=== PATIENT | female | born 1990 | race Two or more races ===

== ENCOUNTER 2022-04-25 14:59 | Outpatient (CLI) | payer OTHER | END 2022-04-25 17:00 | disposition home or self-care (01) | LOC: PRENATAL 14:59 | PROVIDERS: ATTEND Obstetrics & Gynecology Maternal & Fetal Medicine | DX: O35.9XX0 Maternal care for (suspected) fetal abnormality and damage, unspecified, not applicable or unspecified (principal); O35.3XX0 Maternal care for (suspected) damage to fetus from viral disease in mother, not applicable or unspecified; Z3A.21 21 weeks gestation of pregnancy ==

== ENCOUNTER 2022-04-28 08:35 | Inpatient (IN) | payer OTHER ==
[~2022-04-28] VITALS: Ht 177.8 cm; Wt 103.4 kg
[2022-04-28] MEDS ORDERED: PRENATABS RX T1 EACH PO (09:08)
[2022-04-29] MEDS ORDERED: RHOGAM ULTR1500 UNIT IM (07:32)
== END 2022-04-30 10:41 | disposition home or self-care (01) | DRG 807 ==
LOC: LDR 08:35 → O/R 08:35 → OB/GYN 04-29 18:28
PROVIDERS: ADMIT Specialist; ATTEND Specialist
PROC: 3E0DXGC Introduction of Other Therapeutic Substance into Mouth and Pharynx, External Approach (ICD-10-PCS; 2022-04-28)
PROC: 3E0P7VZ Introduction of Hormone into Female Reproductive, Via Natural or Artificial Opening (ICD-10-PCS; 2022-04-28)
PROC: 3E033VJ Introduction of Other Hormone into Peripheral Vein, Percutaneous Approach (ICD-10-PCS; 2022-04-28)
PROC: 4A1HXCZ Monitoring of Products of Conception, Cardiac Rate, External Approach (ICD-10-PCS; 2022-04-28)
PROC: 10D17Z9 Manual Extraction of Products of Conception, Retained, Via Natural or Artificial Opening (ICD-10-PCS; 2022-04-29)
PROC: 10E0XZZ Delivery of Products of Conception, External Approach (ICD-10-PCS; principal; 2022-04-29 15:00)
DX: O36.4XX0 Maternal care for intrauterine death, not applicable or unspecified (principal); Z37.1 Single stillbirth; O03.4 Incomplete spontaneous abortion without complication; Z3A.21 21 weeks gestation of pregnancy; Z20.822 Contact with and (suspected) exposure to COVID-19

== ENCOUNTER → 2023-09-23 08:03 | Outpatient (CLI) | payer OTHER ==
[~2023-09-23 08:03] MED LIST: PRENATABS RX T1 EACH PO; RHOGAM ULTR1500 UNIT IM
== END | disposition home or self-care (01) ==
LOC: PRENATAL 08:03
PROVIDERS: ATTEND Obstetrics & Gynecology Maternal & Fetal Medicine
DX: O35.9XX0 Maternal care for (suspected) fetal abnormality and damage, unspecified, not applicable or unspecified (principal); O35.3XX0 Maternal care for (suspected) damage to fetus from viral disease in mother, not applicable or unspecified; O44.02 Complete placenta previa NOS or without hemorrhage, second trimester; O41.02X0 Oligohydramnios, second trimester, not applicable or unspecified; Z3A.20 20 weeks gestation of pregnancy

== ENCOUNTER 2023-09-28 12:43 | Inpatient (IN) | payer OTHER ==
[~2023-09-28] VITALS: Ht 175.3 cm; Wt 104.8 kg
[~2023-09-28 12:43] MED LIST changes: -ASA81 MG PO; -PRENATAL TABLE1 EAC1 PO
[2023-09-28] MEDS ORDERED: RINGERS SOLUTION,LACTATED 1,000 ML IV SCH (13:00)
[2023-09-28 13:24] LABS: PH,URINE 6.5 (5.0-8.0); URINE APPEARANCE Clear; URINE BILIRRUBIN Negative (NEGATIVE); URINE BLOOD Negative; URINE COLOR Yellow; URINE GLUCOSE Negative (NEGATIVE); URINE KETONE Negative (NEGATIVE); URINE LEUKOCYTE Negative; URINE NITRATE Negative; URINE PROTEIN Negative (NEGATIVE); URINE UROBILINOGEN 0.2 E.U./dl
[2023-09-28 13:25] LABS: URINE BACTERIA 490.1 uL (0.0-1933); URINE EPITHELIAL CELLS 9.2 uL (0.0-38.8); URINE WBC 4.9 uL (0.0-23.2)
[2023-09-28 13:26] LABS: URINE CAST 0.15 uL (0.0-1.40); URINE RBC 1.8 uL (0.0-20.8)
[2023-09-28 13:28] LABS: HEMATOCRIT 32.8 % (36.0-45.00); HEMOGLOBIN 11.9 g/dL (12.0-15.00); MEAN CELL VOLUME 88.9 fL (80.00-100.00); MEAN CORPUSCULAR HEMOGLOBIN 32.1 pg (27.00-32.0); MEAN CORPUSCULAR HGB CONC 36.2 g/dl (32.0-36.0); RED BLOOD COUNT 3.69 M/uL (4.00-6.00); RED CELL DISTRIBUTION WIDTH 13.6 % (11.5-14.5)
[2023-09-28 13:31] LABS: PLATELET COUNT 69 K/uL (150-450)
[2023-09-28] MEDS ORDERED: ASA81 MG PO (13:35)
[2023-09-28] MEDS ORDERED: PRENATAL TABLE1 EAC1 PO (13:36)
[2023-09-28] MEDS ORDERED: MAGNESIUM SULFATE IN WATER 4 GM/100 ML PIGGYBACK IV ONE (13:45)
[2023-09-28] MEDS ORDERED: MAGNESIUM SULFATE IN WATER 500 ML IV SCH (14:00)
[2023-09-28 14:04] LABS: ALBUMIN 3.2 gm/dL (3.4-5.0); BILIRUBIN TOTAL 0.72 mg/dL (0.3-1.2); CALCIUM 9.2 mg/dL (8.5-10.1); CREATININE SERUM 0.55 mg/dL (0.55-1.02); GFR 128.92; GLOBULINA 3.5 G/DL (2.4-3.5); POTASSIUM 4.07 mEq/L (3.5-5.1); TOTAL PROTEIN 6.7 gm/dL (6.4-8.2)
[2023-09-28 15:00] LABS: INR < 0.93; PARTIAL THROMBOPLASTIN TIME 27.8 SECONDS (22.0-34.0); PROTHROMBIN TIME 9.4 SECONDS (9.0-11.5)
[2023-09-29 09:29] LABS: ALT/SGPT 291 U/L (12-78); AST/SGOT 209 U/L (15-37)
[2023-09-29 15:38] LABS: URINE PROT QUANT 24HR 20.9 MG/DL
[2023-09-29 15:47] LABS: URINE PROT QUANT 24 HR 522.5 MG/24HR (42-225)
[2023-09-29 17:51] LABS: CREATINE CLEARANCE 160.9 ML/MIN (97-137); CREATININE SERUM 0.52 mg/dL (0.6-1.0)
[2023-09-29] MEDS ORDERED: ACETAMINOPHEN 500 MG GEL..CAP PO PRN (20:30)
[2023-09-30] MEDS ORDERED: MISOPROSTOL 100 MCG TABLET ONE ×2 (06:33→13:59)
[2023-09-30] MEDS ORDERED: MISOPROSTOL 100 MCG TABLET VAG ONE ×2 (07:45→13:45)
[2023-09-30] MEDS ORDERED: MISOPROSTOL 100 MCG TABLET PO ONE ×2 (07:45→17:45)
[2023-09-30] MEDS ORDERED: MISOPROSTOL 100 MCG TABLET PO NR (13:45)
[2023-09-30] MEDS ORDERED: MISOPROSTOL 50 MCG TABLET VAG ONE (17:45)
[2023-10-01] MEDS ORDERED: MISOPROSTOL 100 MCG TABLET ONE (06:55)
[2023-10-01] MEDS ORDERED: PROMETHAZINE HCL 25 MG/ML AMPUL IV STA (06:59)
[2023-10-01] MEDS ORDERED: MEPERIDINE HCL/PF 50 MG/ML VIAL IV STA (06:59)
[2023-10-01] MEDS ORDERED: MISOPROSTOL 100 MCG TABLET VAG ONE (07:00)
[2023-10-01] MEDS ORDERED: OXYTOCIN 20 UNITS/1000ML RL PIGGYBAG IV ONE ×2 (09:41→10:45)
[2023-10-01] MEDS ORDERED: CHLORHEXIDINE GLUCONATE 120 ML BOTTLE TOP ONE ×2 (09:42→10:45)
[2023-10-01] MEDS ORDERED: OXYTOCIN 10 UNITS/ML VIAL ONE (10:35)
[2023-10-01] MEDS ORDERED: FF) RHO(D) IMMUNE GLOBULIN (POM) IM NR (10:45)
[2023-10-01] MEDS ORDERED: ERYTHROMYCIN BASE 1 GM TUBE OP ONE (10:45)
[2023-10-01] MEDS ORDERED: OxyCODONE HCL/APAP UD (PERCOCET) PO PRN (10:45)
[2023-10-01] MEDS ORDERED: MAGNESIUM SULFATE IN WATER 500 ML IV SCH (10:45)
[2023-10-01] MEDS ORDERED: ACETAMINOPHEN 500 MG GEL..CAP PO PRN (10:45)
[2023-10-01] MEDS ORDERED: OXYTOCIN 10 UNITS/ML VIAL IV NR (12:45)
[2023-10-01] MEDS ORDERED: BENZOCAINE/MENTHOL 90 ML BOTTLE TOP SCH (13:00)
[2023-10-01 15:39] LABS: HEMATOCRIT 33.1 % (36.0-45.00); HEMOGLOBIN 11.8 g/dL (12.0-15.00); MEAN CELL VOLUME 88.1 fL (80.00-100.00); MEAN CORPUSCULAR HEMOGLOBIN 31.3 pg (27.00-32.0); MEAN CORPUSCULAR HGB CONC 35.5 g/dl (32.0-36.0); RED BLOOD COUNT 3.76 M/uL (4.00-6.00); RED CELL DISTRIBUTION WIDTH 13.8 % (11.5-14.5)
[2023-10-01 15:55] LABS: PLATELET COUNT 98 K/uL (150-450)
[2023-10-01 16:06] LABS: ALBUMIN 2.8 gm/dL (3.4-5.0); BILIRUBIN TOTAL 0.41 mg/dL (0.3-1.2); CALCIUM 8.3 mg/dL (8.5-10.1); CREATININE SERUM 0.61 mg/dL (0.55-1.02); GFR 114.4; GLOBULINA 3.5 G/DL (2.4-3.5); POTASSIUM 3.98 mEq/L (3.5-5.1); TOTAL PROTEIN 6.3 gm/dL (6.4-8.2)
== END 2023-10-02 14:34 | disposition home or self-care (01) | DRG 805 ==
LOC: LDR 12:43
PROVIDERS: ADMIT Specialist; ATTEND Specialist
PROC: 4A1HXCZ Monitoring of Products of Conception, Cardiac Rate, External Approach (ICD-10-PCS; 2023-09-28)
PROC: BY4CZZZ Ultrasonography of Second Trimester, Single Fetus (ICD-10-PCS; 2023-09-29)
PROC: BU4CZZZ Ultrasonography of Uterus and Ovaries (ICD-10-PCS; 2023-09-29)
PROC: 3E033VJ Introduction of Other Hormone into Peripheral Vein, Percutaneous Approach (ICD-10-PCS; 2023-09-30)
PROC: 3E0P7VZ Introduction of Hormone into Female Reproductive, Via Natural or Artificial Opening (ICD-10-PCS; 2023-09-30)
PROC: 3E0DXGC Introduction of Other Therapeutic Substance into Mouth and Pharynx, External Approach (ICD-10-PCS; 2023-09-30)
PROC: 10E0XZZ Delivery of Products of Conception, External Approach (ICD-10-PCS; principal; 2023-10-01)
DX: O36.4XX0 Maternal care for intrauterine death, not applicable or unspecified (principal); O60.12X0 Preterm labor second trimester with preterm delivery second trimester, not applicable or unspecified; O41.02X0 Oligohydramnios, second trimester, not applicable or unspecified; O99.891 Other specified diseases and conditions complicating pregnancy; O26.842 Uterine size-date discrepancy, second trimester; O13.4 Gestational [pregnancy-induced] hypertension without significant proteinuria, complicating childbirth; O36.5920 Maternal care for other known or suspected poor fetal growth, second trimester, not applicable or unspecified; Z3A.21 21 weeks gestation of pregnancy; Z37.1 Single stillbirth; Z20.822 Contact with and (suspected) exposure to COVID-19

== ENCOUNTER → 2023-09-28 | Emergency (ER) | payer OTHER ==
[~2023-09-28] VITALS: Ht 175.3 cm; Wt 104.8 kg
[~2023-09-28] MED LIST changes: +ASA81 MG PO; +CHILDREN'S ASPI81 MG PO; +PRENATAL TABLE1 EAC1 PO
[2023-09-28 09:56] LABS: HEMATOCRIT 34.3 % (36.0-45.00); HEMOGLOBIN 12.2 g/dL (12.0-15.00); MEAN CELL VOLUME 87.5 fL (80.00-100.00); MEAN CORPUSCULAR HEMOGLOBIN 31.1 pg (27.00-32.0); MEAN CORPUSCULAR HGB CONC 35.6 g/dl (32.0-36.0); RED BLOOD COUNT 3.92 M/uL (4.00-6.00); RED CELL DISTRIBUTION WIDTH 13.9 % (11.5-14.5)
[2023-09-28 10:05] LABS: PLATELET COUNT 74 K/uL (150-450)
[2023-09-28 10:25] LABS: URINE BILIRRUBIN Negative (NEGATIVE); URINE BLOOD Negative; URINE COLOR Yellow; URINE GLUCOSE Negative (NEGATIVE); URINE LEUKOCYTE Negative; URINE NITRATE Negative; URINE PROTEIN Negative (NEGATIVE); URINE UROBILINOGEN 0.2 E.U./dl
[2023-09-28 10:27] LABS: URINE BACTERIA 1476.6 uL (0.0-1933); URINE EPITHELIAL CELLS 36.7 uL (0.0-38.8); URINE RBC 2.2 uL (0.0-20.8); URINE WBC 3.5 uL (0.0-23.2)
[2023-09-28 10:31] LABS: URINE APPEARANCE CLEAR
[2023-09-28 10:59] LABS: ALBUMIN 3.2 gm/dL (3.4-5.0); BILIRUBIN TOTAL 0.64 mg/dL (0.3-1.2); CALCIUM 9.5 mg/dL (8.5-10.1); CREATININE SERUM 0.55 mg/dL (0.55-1.02); GFR 128.92; GLOBULINA 4.3 G/DL (2.4-3.5); POTASSIUM 3.85 mEq/L (3.5-5.1); TOTAL PROTEIN 7.5 gm/dL (6.4-8.2)
== END | disposition designated cancer center or children's hospital (05) ==
LOC: ER 07:25
PROVIDERS: General Practice
DX: M54.89 Other dorsalgia (principal); Z3A.21 21 weeks gestation of pregnancy